=== PATIENT | male | born 1965 | race Caucasian/White ===

== ENCOUNTER 2017-02-14 09:25 | Emergency (ER) | payer BC, OTHER ==
[~2017-02-14] VITALS: Ht 170.2 cm; Wt 81.5 kg
[2017-02-14 09:28] VITALS: BP 140/79; PULSE 56; RESP 20; O2SAT 100
[2017-02-14] MEDS ORDERED: SODIUM CHLOR 0.9% 1000 ML INJ 1,000 ML IV SCH (09:52)
[2017-02-14 09:54] VITALS: BP 153/86; PULSE 48; RESP 20; O2SAT 98
--- NOTE | 2017-02-14 09:59 | PD ---
HPI Chief Complaint: Abdominal Pain Time Seen by Provider: 09:56 Travel History International Travel<30 days: No Contact w/Intl Traveler<30days: No Traveled to known affect area: No History of Present Illness HPI 51-year-old male patient presents to the ER today for 8 out of 10 right lower quadrant abdominal pain that started overnight with radiation up to the right flank area with nausea and vomiting. He denies any diarrhea, urinary symptoms, fevers, or any other symptoms. He does not know any exacerbating or alleviating factors. He denies any previous history of similar pain. Modifying Factors: None Associated Signs & Symptoms: Right lower quadrant and right flank pain with nausea vomiting Risk Factors: None PFSH Past Medical History Medical History: Denies Significant Hx Past Surgical History Eye Surgery: Yes (corrective muscle repair) Tonsillectomy: Yes Social History Alcohol Use: Yes (quit 1 month ago) Tobacco Use: Yes (1 ppd) Substance Use: No Allergies-Medications (Allergen,Severity, Reaction): Coded Allergies: Benadryl (Verified Allergy, Unknown, 02/14/17) Review of Systems Except as stated in HPI: all other systems reviewed are Neg Physical Exam Narrative GENERAL: Well-developed middle age white male patient currently in moderate distress secondary to pain. Awake and oriented 3. SKIN: Warm and dry. HEAD: Atraumatic. Normocephalic. He has a notable right forehead chronic hemangioma. EYES: Pupils equal and round. No scleral icterus. No injection or drainage. ENT: No nasal bleeding or discharge. Mucous membranes pink and moist. NECK: Trachea midline. No JVD. CARDIOVASCULAR: Regular rate and rhythm. No murmur appreciated. RESPIRATORY: No accessory muscle use. Clear to auscultation. Breath sounds equal bilaterally. GASTROINTESTINAL: Abdomen soft, mild right lower quadrant abdominal pain without guarding or rebound, nondistended. Hepatic and splenic margins not palpable. MUSCULOSKELETAL: No obvious deformities. No clubbing. No cyanosis. No edema. NEUROLOGICAL: Awake and alert. No obvious cranial nerve deficits. Motor grossly within normal limits. Normal speech. PSYCHIATRIC: Appropriate mood and affect; insight and judgment normal. Data Data Last Documented VS Vital Signs Date Time Temp Pulse Resp B/P Pulse Ox O2 Delivery O2 Flow Rate FiO2 02/14/17 12:00 44 16 120/75 98 Room Air Orders Complete Blood Count With Diff (02/14/17 09:52) Comprehensive Metabolic Panel (02/14/17 09:52) Lipase (02/14/17 09:52) Urinalysis - C+S If Indicated (02/14/17 09:52) Iv Access Insert/Monitor (02/14/17 09:52) Ecg Monitoring (02/14/17 09:52) Oximetry (02/14/17 09:52) Ondansetron Inj (Zofran Inj) (02/14/17 10:00) Sodium Chlor 0.9% 1000 Ml Inj (Ns 1000 M (02/14/17 09:52) Sodium Chloride 0.9% Flush (Ns Flush) (02/14/17 10:00) Hydromorphone Pf Inj (Dilaudid Pf Inj) (02/14/17 10:00) Ct Abd/Pel W Iv Contrast(Rout) (02/14/17 09:56) Iohexol 350 Inj (Omnipaque 350 Inj) (02/14/17 11:42) Hydromorphone Pf Inj (Dilaudid Pf Inj) (02/14/17 12:15) Labs Laboratory Tests Test 02/14/17 02/14/17 10:01 11:21 White Blood Count 9.8 TH/MM3 Red Blood Count 4.53 MIL/MM3 Hemoglobin 14.8 GM/DL Hematocrit 42.4 % Mean Corpuscular Volume 93.7 FL Mean Corpuscular Hemoglobin 32.6 PG Mean Corpuscular Hemoglobin 34.8 % Concent Red Cell Distribution Width 13.6 % Platelet Count 214 TH/MM3 Mean Platelet Volume 7.7 FL Neutrophils (%) (Auto) 81.7 % Lymphocytes (%) (Auto) 10.0 % Monocytes (%) (Auto) 6.9 % Eosinophils (%) (Auto) 0.8 % Basophils (%) (Auto) 0.6 % Neutrophils # (Auto) 8.0 TH/MM3 Lymphocytes # (Auto) 1.0 TH/MM3 Monocytes # (Auto) 0.7 TH/MM3 Eosinophils # (Auto) 0.1 TH/MM3 Basophils # (Auto) 0.1 TH/MM3 CBC Comment DIFF FINAL Differential Comment Sodium Level 142 MEQ/L Potassium Level 4.0 MEQ/L Chloride Level 109 MEQ/L Carbon Dioxide Level 24.8 MEQ/L Anion Gap 8 MEQ/L Blood Urea Nitrogen 12 MG/DL Creatinine 1.27 MG/DL Estimat Glomerular Filtration 60 ML/MIN Rate Random Glucose 144 MG/DL Calcium Level 8.6 MG/DL Total Bilirubin 0.3 MG/DL Aspartate Amino Transf 25 U/L (AST/SGOT) Alanine Aminotransferase 52 U/L (ALT/SGPT) Alkaline Phosphatase 83 U/L Total Protein 6.8 GM/DL Albumin 3.7 GM/DL Lipase 161 U/L Urine Color YELLOW Urine Turbidity HAZY Urine pH 5.0 Urine Specific [place] 1.022 Urine Protein 30 mg/dL Urine Glucose (UA) NEG mg/dL Urine Ketones NEG mg/dL Urine Occult Blood LARGE Urine Nitrite NEG Urine Bilirubin NEG Urine Urobilinogen LESS THAN 2.0 MG/DL Urine Leukocyte Esterase NEG Urine RBC /hpf Urine WBC 8 /hpf Urine Calcium Oxalate Crystals FEW /hpf Urine Bacteria OCC /hpf Urine Mucus FEW /lpf Microscopic Urinalysis Comment CULT NOT INDICATED MDM Medical Decision Making Medical Screen Exam Complete: Yes Emergency Medical Condition: Yes Medical Record Reviewed: Yes Interpretation(s) Laboratory Tests Test 02/14/17 02/14/17 10:01 11:21 Neutrophils (%) (Auto) 81.7 % (16.0-70.0) Neutrophils # (Auto) 8.0 TH/MM3 (1.8-7.7) Chloride Level 109 MEQ/L (98-107) Estimat Glomerular Filtration 60 ML/MIN (>89) Rate Random Glucose 144 MG/DL (74-106) Urine Turbidity HAZY (CLEAR) Urine Protein 30 mg/dL (NEG-TRACE) Urine Occult Blood LARGE (NEG) Urine WBC 8 /hpf (0-5) Urine Calcium Oxalate Crystals FEW /hpf (NONE) Urine Bacteria OCC /hpf (NONE) Urine Mucus FEW /lpf (OCC) Differential Diagnosis Right sided abdominal and flank paindiverticulitis versus appendicitis versus renal colic versus musculoskeletal Narrative Course Labwork shows hematuria and a few white blood cell counts. It is otherwise unremarkable. CAT scan is showing a 2 mm stone with hydronephrosis. Patient had been given IV Dilaudid, fluids, and Zofran in the ER. On reevaluation at 12 :24 PM, he is feeling more stable although is still having pain. At this point , vital signs are stable in the ER and patient has not vomited. My plan would be to release him with urologist. We will have him strain his urine. We will give him further symptomatic relief or pain. Drink plenty of fluids. The plan was discussed with him and he states understanding. Return for any worsening in pain or new symptoms as needed. Diagnosis Primary Impression: Renal colic on right side Med/Other Pt SpecificInfo: Prescription(s) given Scripts Ondansetron Odt (Zofran Odt)4 Mg Tab4 Mg SL Q6HR PRN (Nausea/Vomiting) #5 TAB Ref 0 Prov:Brennen Langston MD 02/14/17 Hydrocodone-Acetaminophen (Lortab)5-325 Mg Tab1-2 Tab PO Q6H PRN (PAIN) #15 TAB Ref 0 Prov:Brennen Langston MD 02/14/17 Ibuprofen (Motrin Ib)200 Mg Atk264 Mg PO Q6H PRN (PAIN SCALE 1 TO 10) #30 TAB Ref 0 Prov:Brennen Langston MD 02/14/17 Alfuzosin ER 24 HR (Uroxatral ER 24 HR)10 Mg Tab10 Mg PO DAILY #7 TAB Ref 0 Prov:Brennen Langston MD 02/14/17 Disposition: 01 DISCHARGE HOME Condition: Stable Brennen Langston MD Feb 14, 2017 09:59
[2017-02-14] MEDS ORDERED: HYDROmorphone HCL PF 1 MG/ML VIAL IV PUSH ONE ×2 (10:00→12:15)
[2017-02-14] MEDS ORDERED: ONDANSETRON HCL 4 MG/2 ML VIAL IVP ONE (10:00)
[2017-02-14] MEDS ORDERED: SODIUM CHLORIDE 0.9% FLUSH 5 ML FLUSH IVF PRN (10:00)
[2017-02-14 10:09] LABS: BASOPHIL # 0.1 TH/MM3 (0-0.2); BASOPHIL % 0.6 % (0.0-2.0); EOSINOPHIL # 0.1 TH/MM3 (0-0.4); EOSINOPHIL % 0.8 % (0.0-4.0); HEMATOCRIT 42.4 % (39.0-51.0); HEMO FLAGS DIFF FINAL; MEAN CELL VOLUME 93.7 FL (80.0-100.0); MEAN CORPUSCULAR HEMOGLOBIN 32.6 PG (27.0-34.0); MEAN CORPUSCULAR HGB CONC 34.8 % (32.0-36.0); MONO % 6.9 % (0.0-8.0); NEUT % 81.7 % (16.0-70.0); PLATELET COUNT 214 TH/MM3 (150-450); RED BLOOD COUNT 4.53 MIL/MM3 (4.50-5.90); RED CELL DISTRIBUTION WIDTH 13.6 % (11.6-17.2); WHITE BLOOD COUNT 9.8 TH/MM3 (4.0-11.0)
[2017-02-14 10:35] LABS: ANION GAP 8 MEQ/L (5-15); AST (GOT) 25 U/L (15-37); BICARBONATE 24.8 MEQ/L (21.0-32.0); BLOOD UREA NITROGEN 12 MG/DL (7-18); CHLORIDE 109 MEQ/L (98-107); GLOMERULAR FILTRATION RATE 60 ML/MIN (>89); SODIUM (NA) 142 MEQ/L (136-145)
[2017-02-14 10:39] LABS: ALKALINE PHOSPHATASE 83 U/L (45-117); ALT (GPT) 52 U/L (12-78); TOTAL BILIRUBIN ADULT 0.3 MG/DL (0.2-1.0)
[2017-02-14] MEDS ORDERED: IOHEXOL 350 MG/ML 10 ML VIAL (for RAD DIAG) IV ONE (11:42)
[2017-02-14 11:54] LABS: BACTERIA, URINE OCC /hpf; BLOOD, URINE LARGE (NEG); CALCIUM OXALATE CRYSTALS,URINE FEW /hpf; COMMENT (UR) CULT NOT INDICATED; CULTURE IF INDICATED CULT NOT INDICATED; GLUCOSE,URINE NEG (NEG); KETONE, URINE NEG (NEG); MUCUS URINE FEW /lpf (OCC); NITRITE,URINE NEG (NEG); URINE COLOR YELLOW (YELLW/STRAW)
[2017-02-14 12:00] VITALS: BP 120/75; PULSE 44; RESP 16; O2SAT 98
--- NOTE | 2017-02-14 12:18 | RADRPT ---
EXAM DATE/TIME: 02/14/2017 11:41 [facility] COMPARISON: No previous studies available for comparison. INDICATIONS : Right lower quadrant pain today. IV CONTRAST: 90 cc Omnipaque 350 (iohexol) IV ORAL CONTRAST: No oral contrast ingested. RADIATION DOSE: 8.97 CTDIvol (mGy) MEDICAL HISTORY : None SURGICAL HISTORY : None. ENCOUNTER: Initial ACUITY: 1 day PAIN SCALE: 8/10 LOCATION: Abdomen TECHNIQUE: Volumetric scanning of the abdomen and pelvis was performed. Using automated exposure control and ad justment of the mA and/or kV according to patient size, radiation dose was kept as low as reasonably achievable to obtain optimal diagnostic quality images. FINDINGS: The limited portion of the lung base visualized is clear. The liver demonstrates a 2 cm simple cyst. The spleen, pancreas, adrenal glands and left kidney are n ormal in appearance. There is mild hydronephrosis of the right kidney. The right ureter is dilated down to the level of th e mid pelvis. There is a 2 mm stone in the distal portion of the right ureter. There is no free intraperitoneal air. No free intraperitoneal fluid is identified. There is no retrop eritoneal lymphadenopathy. The aorta is normal in caliber. The visualized loops of small and large bowel are unremarkable. There is no free fluid within the pelvis. No iliac or inguinal adenopathy is seen. The visualized bony structures are grossly intact. CONCLUSION: 1. There is a 2 mm stone in the distal right ureter with moderate postobstructive changes around the right kidney. Javon Castillo MD on February 14, 2017 at 12:08 Board Certified Radiologist. This report was verified electronically.
[2017-02-14] MEDS ORDERED: HYDR-3533 PO (12:27)
[2017-02-14] MEDS ORDERED: MOTR200T4 PO (12:27)
[2017-02-14] MEDS ORDERED: UROX10TA3 PO (12:27)
[2017-02-14] MEDS ORDERED: ZOFR4TAB3 SL (12:27)
== END 2017-02-14 13:15 | disposition home or self-care (01) ==
LOC: NEPE 09:25
DX: N23 Unspecified renal colic (principal); R11.2 Nausea with vomiting, unspecified; F17.210 Nicotine dependence, cigarettes, uncomplicated
CPT/HCPCS: 74177; 80053; 81001; 83690; 85025; 96361; 96374; 96375; 96376; 99284; J1170; J2405; J7030; Q9967